=== PATIENT | female | born 1975 | race Caucasian/White ===

== ENCOUNTER 2018-11-22 09:00 | Outpatient (RCR) | payer BC | END 2018-11-22 09:30 | disposition home or self-care (01) | LOC: PT 09:00 | DX: H81.12 Benign paroxysmal vertigo, left ear (principal) ==

== ENCOUNTER 2020-02-17 14:00 | Outpatient (RCR) | payer OTHER | END 2020-05-01 | disposition still patient (30) | LOC: PT | DX: H81.13 Benign paroxysmal vertigo, bilateral (principal) ==